=== PATIENT | male | born 1970 | race African-American/Black ===

== ENCOUNTER 2017-10-14 01:46 | Emergency (ER) | payer MEDICAID ==
[~2017-10-14] VITALS: Ht 193 cm; Wt 79.8 kg
[2017-10-14] MEDS ORDERED: HYDROcodone/APAP 10/325 MG TABLET ONE (02:28)
[2017-10-14] MEDS ORDERED: HYDROcodone/APAP 10/325 MG TABLET PO ONE (02:30)
[2017-10-14] MEDS ORDERED: LIDOCAINE 1%, 20ML ONE (03:39)
[2017-10-14] MEDS ORDERED: BUPIVACAINE/PF 0.5% ONE (03:39)
[2017-10-14 03:45] VITALS: BP 139/89
[2017-10-14 03:45] LABS: BASOPHILS # (AUTO) 0.03 x10^3/uL (0-0.1); BASOPHILS % (AUTO) 0 % (0-1); EOSINOPHILS # (AUTO) 0.04 x10^3/uL (0-0.4); EOSINOPHILS % (AUTO) 0 % (1-7); LYMPHOCYTES # (AUTO) 1.12 x10^3/uL (1-3.4); LYMPHOCYTES % (AUTO) 8 % (22-44); MD NO; MEAN CORPUSCULAR HEMOGLOBIN 32.7 pg (27.5-34.5); MEAN CORPUSCULAR HGB CONC 33.9 g/dL (33.2-36.2); MEAN CORPUSCULAR VOLUME 96.4 fL (81-97); MEAN PLATELET VOLUME 7.8 fL (7.4-10.4); MONOCYTES # (AUTO) 1.43 x10^3/uL (0.2-0.8); MONOCYTES % (AUTO) 10 % (2-9); NEUTROPHILS # (AUTO) 11.75 x10^3/uL (1.8-6.8); NEUTROPHILS % (AUTO) 82 % (42-75); PLATELET COUNT 332 x10^3/uL (130-400); RED BLOOD COUNT 4.61 x10^6/uL (4.38-5.82); RED CELL DISTRIBUTION WIDTH 13.7 % (9.4-14.8)
[2017-10-14 03:53] LABS: ANION GAP 10 mmol/L (5-15); CALCIUM 8.8 mg/dL (8.5-10.1); CHLORIDE 102 mmol/L (98-107); CREATININE 1.08 mg/dL (0.7-1.3)
[2017-10-14] MEDS ORDERED: BUPIVACAINE/PF 0.5% INFIL ONE (04:00)
[2017-10-14] MEDS ORDERED: LIDOCAINE 1%, 20ML SQ ONE (04:00)
[2017-10-14] MEDS ORDERED: FENTANYL PF 250 MCG/5ML ONE (04:33)
[2017-10-14] MEDS ORDERED: MIDAZOLAM 1 MG/ML, 2ML ONE (04:33)
== END 2017-10-14 05:21 | disposition home or self-care (01) ==
LOC: ED 02:19
DX: S52.102A Unspecified fracture of upper end of left radius, initial encounter for closed fracture (principal)
CPT/HCPCS: 36415; 73110; 73200; 80048; 85025; 99285; J2250; J3010

== ENCOUNTER 2021-06-12 19:25 | Emergency (ER) | payer MEDICAID ==
[~2021-06-12] VITALS: Ht 195.6 cm; Wt 77.0 kg
[2021-06-12 19:48] VITALS: BP 149/95
[2021-06-12] MEDS ORDERED: IBUPROFEN 800 MG TABLET ONE (22:17)
--- NOTE | 2021-06-12 22:23 | NUR ---
Patient/Caregiver given discharge instructions and they have confirmed that they understand the instructions. Patient ambulatory with steady gait. NAD, all questions answered appropriately, denies additional needs at this time. No personal belongings left in room after discharge.
[2021-06-12] MEDS ORDERED: IBUPROFEN 800 MG TABLET PO ONE (22:30)
== END 2021-06-12 22:31 | disposition home or self-care (01) ==
LOC: ED 19:30
DX: M25.561 Pain in right knee (principal); M25.562 Pain in left knee; F17.210 Nicotine dependence, cigarettes, uncomplicated
CPT/HCPCS: 99283